=== PATIENT | male | born 1990 | race Caucasian/White ===

== ENCOUNTER 2016-11-13 18:50 | Emergency (ER) | payer OTHER ==
[~2016-11-13] VITALS: Ht 172.7 cm; Wt 104.5 kg
[2016-11-13 18:58] VITALS: Ht 172.7 cm; Wt 104.5 kg
--- NOTE | 2016-11-13 21:50 | RADRPT ---
PROCEDURE: Retroperitoneal US. CLINICAL INDICATION: lt sided flank pain w/ diff. urinating, r/o nephrolithiasis TECHNIQUE: Multiple sonographic images of the retroperitoneum were obtained. The images were revi ewed on a PACS workstation. COMPARISON: No prior studies are available for comparison. FINDINGS: The right kidney measures 11.8 cm. The left kidney measures 12.0 cm. The renal parenchymal echotexture is normal. There is no hydronephrosis. There is no focal renal mass or calcification seen. The bladder is grossly unremarkable. The prostate measures 2.8 x 2.3 x 3.4 cm. Prostatic volume is within normal limits at 11 cc. The visualized liver is incidentally noted to demonstrate increased echogenicity. IMPRESSION: Unremarkable retroperitoneal sonogram. No hydronephrosis bilaterally. Incidentally noted increased liver echogenicity suggests fatty infiltration. RPTAT: EE Physician Ashish Date Time Electronically viewed and signed by Physician Ashish on 11/13/2016 21:49 /
[2016-11-13 22:29] LABS: ADD UMIC NO; URINE BILIRUBIN (Dip) NEGATIVE (NEGATIVE); URINE BLOOD (Dip) NEGATIVE (NEGATIVE); URINE COLOR LT. YELLOW (YELLOW); URINE GLUCOSE (Dip) NEGATIVE (NEGATIVE); URINE KETONES (Dip) NEGATIVE (NEGATIVE); URINE LEUKOCYTE ESTERASE (Dip) NEGATIVE (NEGATIVE); URINE NITRITE (Dip) NEGATIVE (NEGATIVE); URINE TOTAL PROTEIN (Dip) NEGATIVE (NEGATIVE); URINE UROBILINOGEN (Dip) 0.2 E.U./dL (0.1-1.0)
--- NOTE | 2016-11-13 23:10 | ERD ---
ER Documentation Chief Complaint Date/Time DATE: 11/13/16 TIME: 23:05 Chief Complaint painful urination x 10 days HPI This is a 26-year-old male presenting to the emergency department for difficulty urinating and frequent urination 10 days. Denies dysuria or hematuria. No fevers or chills. No back injury or trauma. No flank pain. Patient was seen outpatient and was treated with an IM antibiotic injection and for antibiotic pills by mouth. Patient is unsure of which medications he was given in the office. No penile discharge or swelling. No genital lesions. Patient is HIV positive. ROS All systems reviewed and are negative except as per history of present illness. Medications Home Meds Active Scripts Nitrofurantoin Monohyd Macrocr* (Macrobid*) 100 Mg Capsr, 100 MG PO BID for 5 Days, CAP Prov:JENNI GUARDADO NP 11/13/16 Allergies Allergies: Coded Allergies: No Known Allergy (Unverified , 11/13/16) PMhx/Soc Medical and Surgical Hx: pt denies Surgical Hx Hx Miscellaneous Medical Probl: Yes (HIV) Hx Alcohol Use: No Hx Substance Use: No Hx Tobacco Use: Yes (1 PACK PER DAY) Smoking Status: Current every day smoker Physical Exam Vitals Vital Signs Date Time Temp Pulse Resp B/P Pulse Ox O2 Delivery O2 Flow Rate FiO2 11/13/16 23:47 98.0 68 18 126/74 100 Room Air 11/13/16 18:58 98.4 81 20 123/66 100 Physical Exam Const: No acute distress, alert Head: Atraumatic Eyes: Normal Conjunctiva ENT: Normal External Ears, Nose and Mouth. Neck: Full range of motion..~ No meningismus. Resp: Clear to auscultation bilaterally Cardio: Regular rate and rhythm, no murmurs Abd: Soft, non tender, non distended. Normal bowel sounds Skin: No petechiae or rashes Back: No midline or flank tenderness Ext: No cyanosis, or edema Neur: Awake and alert Psych: Normal Mood and Affect Results 24 hrs Laboratory Tests Test 11/13/16 21:21 Urine Bilirubin NEGATIVE Urine Clarity CLEAR Urine Color LT. YELLOW Urine Glucose NEGATIVE% Urine Hemoglobin NEGATIVE Urine Ketones NEGATIVE Urine Leukocyte Esterase NEGATIVE Urine Nitrite NEGATIVE Urine Specific [place] 1.025 Urine Total Protein NEGATIVE Urine Urobilinogen 0.2 E.U./dL Urine pH 5.5 Procedures/MDM ED COURSE: The patient was stable throughout ED course. I kept the patient and/or family informed of laboratory and diagnostic imaging results throughout the ED course. Laboratory UA negative Urine culture results are pending Imaging Ultrasound kidneys Patient: CRISTIN SOTO : 1990 Age: 26 Sex: M MR #: [id number] DOS: 11/13/162113 Ordering MD: JENNI GUARDADO NP Location: [facility] Room/Bed: PROCEDURE: Retroperitoneal US. CLINICAL INDICATION: lt sided flank pain w/ diff. urinating, r/o nephrolithiasis TECHNIQUE: Multiple sonographic images of the retroperitoneum were obtained. The images were reviewed on a PACS workstation. COMPARISON: No prior studies are available for comparison. FINDINGS: The right kidney measures 11.8 cm. The left kidney measures 12.0 cm. The renal parenchymal echotexture is normal. There is no hydronephrosis. There is no focal renal mass or calcification seen. The bladder is grossly unremarkable. The prostate measures 2.8 x 2.3 x 3.4 cm. Prostatic volume is within normal limits at 11 cc. The visualized liver is incidentally noted to demonstrate increased echogenicity. IMPRESSION: Unremarkable retroperitoneal sonogram. No hydronephrosis bilaterally. Incidentally noted increased liver echogenicity suggests fatty infiltration. MDM: 26-year-old male presents to the emergency department for difficulty urinating and frequent urination 10 days. Was treated previously in outpatient with IM antibiotic and p.o. antibiotics. Patient is unsure of which medications he was given. Urine is negative for infection or blood. Ultrasound kidneys reviewed by radiologist shows unremarkable retroperitoneal sonogram. No hydronephrosis bilaterally. Incidentally noted increased liver echogenicity suggests fatty infiltration. Bladder scan performed which shows post void residual between 56-158. Patient appears calm and comfortable and stable throughout ED visit. Appears appropriate for discharge home. Instructed patient to return to ED immediately if unable to void in 6-8 hours. Instructed patient on urgent urology follow-up. Low suspicion for pyelonephritis, hydronephrosis, nephrolithiasis or urinary tract obstruction. Patient's diagnosis is dysuria. Patient is appropriate for outpatient management will be discharged with prescription for Macrobid for possible UTI infection. Instructed patient to follow-up with primary care provider in the next 24-40 hours an urgent referral to urology. Return to ED for any high fever, chest pain, difficulty breathing, shortness breath, wheezing, vomiting, diarrhea, abdominal pain or any new or worsening symptoms. Instructed patient to return to ED immediately if unable to void in 6-8 hours. Patient verbalizes understanding. All questions answered at discharge. Departure Diagnosis: Primary Impression: Dysuria Condition: Stable JENNI GUARDADO NP Nov 13, 2016 23:10
[2016-11-13] MEDS ORDERED: NITR-58 PO (23:34)
[2016-11-13 23:47] VITALS: BP 126/74; PULSE 68; RESP 18; TEMP 98
== END 2016-11-13 23:47 | disposition home or self-care (01) ==
LOC: FTE 18:50
DX: R30.0 Dysuria (principal); F17.210 Nicotine dependence, cigarettes, uncomplicated
CPT/HCPCS: 76775; 81003; 87086; Z7502